=== PATIENT | male | born 1965 | race American Indian/Alaskan Native ===

== ENCOUNTER 2018-06-14 03:43 | Emergency (ER) | payer SELFPAY ==
[2018-06-14 04:14] VITALS: RESP 18; TEMP 98; O2SAT 99
[2018-06-14 04:16] VITALS: BP 164/87; PULSE 68
--- NOTE | 2018-06-14 04:56 | C.PDOC ---
History Of Present Illness 52-year-old male presents to the ED for evaluation of numbness to his left 5th finger which began around 2-3 weeks ago. Patient's friend told him that his symptoms may be indicative of stroke, so he presents to the ED for further evaluation. Patient states he has not followed up with a doctor in several years and has not taken any medicine for his symptoms. Patient describes his symptoms as a pins and needles sensation to his finger. Otherwise, he denies headache, weakness, pain, or injuries to the site. Time Seen by Provider: 06/14/18 04:20 Chief Complaint (Nursing): Upper Extremity Problem/Injury History Per: Patient History/Exam Limitations: no limitations Onset/Duration Of Symptoms: Other (2-3 weeks ) Current Symptoms Are (Timing): Still Present Additional History Per: Patient Past Medical History Reviewed: Historical Data, Nursing Documentation, Vital Signs Vital Signs: Last Vital Signs Temp 98 F 06/14/18 04:02 Pulse 68 06/14/18 04:15 Resp 18 06/14/18 04:02 BP 164/87 H 06/14/18 04:15 Pulse Ox 99 06/14/18 04:15 - Medical History PMH: No Chronic Diseases Surgical History: No Surg Hx Family History: States: Unknown Family Hx - Social History Hx Alcohol Use: Yes Hx Substance Use: No - Immunization History Hx Tetanus Toxoid Vaccination: No Hx Influenza Vaccination: No Hx Pneumococcal Vaccination: No Review Of Systems Constitutional: Negative for: Fever, Chills, Weakness Eyes: Negative for: Vision Change Cardiovascular: Negative for: Chest Pain Respiratory: Negative for: Cough, Shortness of Breath Musculoskeletal: Negative for: Hand Pain Skin: Negative for: Rash, Lesions, Jaundice, Bruising Neurological: Positive for: Numbness (to left 5th finger, pins and needles sensation ). Negative for: Weakness, Headache, Dizziness Physical Exam - Physical Exam Appears: Non-toxic, No Acute Distress Skin: Normal Color, Warm, No Rash Head: Atraumatic, Normacephalic Eye(s): bilateral: Normal Inspection Extremity: Normal ROM, Capillary Refill (less than 2 seconds ) Extremity: Bilateral: Atraumatic Neurological/Psych: Oriented x3, Normal Speech, Normal Cognition, Normal Motor, Other (normal editor city strength, two-point differentiation intact. slight distubance of sensation at the base of the left 5th finger, normal sensation to distal finger) Gait: Steady ED Course And Treatment O2 Sat by Pulse Oximetry: 99 (on RA) Pulse Ox Interpretation: Normal Medical Decision Making Medical Decision Making: Progress: On reassessment, patient is resting comfortably, showing no signs of distress and is stable for discharge. Patient is reassured that his symptoms indicate paresthesia of the finger, and not stroke. Patient is advised to follow up with his PMD within 1-2 days for further evaluation and advised to return to the ED if symptoms persist or worsen. Disposition Counseled Patient/Family Regarding: Diagnosis, Need For Followup - Disposition Referrals: [facility] [Outside] Igor Aguilar MD [Staff Provider] - Disposition: HOME/ ROUTINE Disposition Time: 04:55 Condition: IMPROVED Instructions: Low Salt Diet, Diet and Health, Paresthesias (DC) Forms: [facility] ([place]), General Discharge Instructions - Clinical Impression Clinical Impression: Paresthesia of finger - PA / ABSTRACTOR / Resident Statement MD/DO has reviewed & agrees with the documentation as recorded. - Scribe Statement The provider has reviewed the documentation as recorded by the Scribe (Val Shah) All medical record entries made by the Scribe were at my direction and personally dictated by me. I have reviewed the chart and agree that the record accurately reflects my personal performance of the history, physical exam, medical decision making, and the department course for this patient. I have also personally directed, reviewed, and agree with the discharge instructions and disposition.
== END 2018-06-14 05:11 | disposition home or self-care (01) ==
LOC: C.ER 03:43
DX: R20.2 Paresthesia of skin (principal)